=== PATIENT | male | born 2000 | race Caucasian/White ===

== ENCOUNTER 2024-04-15 13:49 | Emergency (ER) | payer SELFPAY ==
[~2024-04-15] VITALS: Ht 170.2 cm; Wt 60.0 kg
[2024-04-15 14:01] VITALS: BP 109/77; TEMP 98.6; O2SAT 99
[2024-04-15 14:06] VITALS: PULSE 93; RESP 15; O2SAT 98
== END 2024-04-15 15:34 | disposition home or self-care (01) ==
LOC: ER 13:49
DX: M25.512 Pain in left shoulder (principal); Z53.21 Procedure and treatment not carried out due to patient leaving prior to being seen by health care provider